=== PATIENT | female | born 1965 | race Caucasian/White ===

== ENCOUNTER 2024-10-22 09:12 | Outpatient (AMB) | payer MEDICAID, SELFPAY ==
[2024-10-22 09:22] VITALS: BP 128/84; PULSE 65; RESP 18; TEMP 35.9; O2SAT 99; BMI 37.2
--- NOTE | 2024-10-22 09:22 | PD.ORTHCLVIS ---
Vital signs 10/22/24 09:22 Height 1.55 m Height Method Stated Weight 89.358 kg Weight Measurement Method Standing Scale BMI 37.2 BP 128/84 Blood Pressure Source Automatic Cuff Blood Pressure Location Left Upper Arm Position Sitting Respiration 18 Pulse 65 Pulse Source Monitor Temp 96.6 F L Temp Source Temporal Artery Scan Pulse Oximetry (%) 99 Oxygen Delivery Method Room Air Med/Allergies Allergies & Medications Allergies No Known Allergies Allergy (Verified 10/22/24 09:24) Medication Reconciliation aspirin 81 mg tablet,delayed release 81 mg PO QDAY 10/22/24 [History Confirmed 10/22/24] atorvastatin 40 mg tablet 40 mg PO QDAY 10/22/24 [History Confirmed 10/22/24] lisinopril 5 mg tablet 5 mg PO QDAY 10/22/24 [History Confirmed 10/22/24] metformin 500 mg tablet 500 mg PO BID 10/22/24 [History Confirmed 10/22/24] semaglutide 1 mg/dose (4 mg/3 mL) subcutaneous pen injector (Ozempic) 1 mg subcut QWEEK 10/22/24 [History Confirmed 10/22/24] Exam Exam Breathing is nonlabored. Patient has a normal mood and affect. Bilateral extremities were evaluated and demonstrates sensation intact to light touch. Palpable pedal pulses are present. No significant edema is present. Bilateral hips were examined. The patient has no pain with log roll of the hips. Internal rotation to 30 degrees and external rotation to 30 degrees is painless. Negative FADIR. Left knee was examined today. The left knee is in reasonable alignment. Range of motion from 0-120 degrees. Knee is stable to varus and valgus as well as AP translation with <5mm. Patient has a negative McMurrays. There is no pain with patellofemoral compression and no crepitus noted. The knee is nontender to palpation. The right knee was also examined. The right knee is in varus alignment. Range of motion from 0-115 degrees. Knee is stable to varus and valgus as well as AP translation with <5mm. Patient has a negative McMurrays. There is no pain with patellofemoral compression and no crepitus noted. The knee is tender to palpation medially. I have no weightbearing x-rays that I can do. I do have the report consistent with severe arthritis medially with complete obliteration Assessment and Plan Problem List (1) Arthritis of knee, right: Status: Acute Plan: This is a 69-year-old female with severe right knee arthritis according to the x-ray report. I would need to get weightbearing x-rays to better evaluate the severity. We can discuss different treatment options depending on what that shows. She is very much interested in surgery and does not want to continue with conservative treatment. I discussed with her that I would need to see her xrays first. Office Procedures GNS Level of Care Nursing/Assessment Patient Status: Initial/New Patient Nursing Assessment/Reassesment: Medication Reconciliation, Update PMH in EMR and Vital Signs Coordination of Care: Complex Care and Chronic Disease 1-5, Education Complex Pt/Fam, Consent,records obtained, informed consent, 1 Ins Authorization, Lab and Imaging orders, Results/Orders obtained and Staff clarify orders New Patient Charge New Patient Point Assignment: 1124 New Patient Point Charge: SENIOR MATERIALS PLANNER Level 4 ([id number]) MA Intake Visit Data Collection New Patient or Established: New Patient (never been to [facility]) Reason for Visit:: RIGHT KNEE MENISCUS TEAR Seen by Clinical Staff ONLY (RN/MA): No Head Of Ethics And Compliance Required: No PCP or OBGYN visit in last 3 months: Yes Hx Now: No Do You Feel Safe at Home: Yes Authorities Contacted: N/A Questionairres Past Medical History Past Medical History Have you ever been diagnosed with any of the following: Cardiology Problems Hypercholesterolemia: Yes Hypertension: Yes Endocrine Problems Diabetes Mellitus Type 1: Yes Hyperthyroidism: Yes Subjective Visit Visit for: new patient and knee (RIGHT) Immunization / Flu Flu Vaccine in the Last 12 Months: No Flu Vaccine Exclusion Criteria: Refused by Patient History of Present Illness Chief complaint: Right knee pain Amaya is a 59-year-old female with severe right knee pain. This been ongoing for years. She has had multiple injections as well as anti-inflammatories and physical therapy. She reports that nothing helps anymore. The pain is affecting Her quality life and happiness Pain Pain level (0-10): 9 Pain duration: CONSTANT Pain location: inside (medial), outside (lateral), anterior and posterior Pain quality: sharp, burning and other (specify) (THROBBING/STABBING) Pain timing: night, increases with activity and stairs Associated signs & symptoms: stiffness Ambulatory data Ambulatory device: none Treatments Number of previous injections: 3 Improvement with previous injections: No Number of Physical Therapy sessions: 4 Improvement with PT: No Improvement with NSAIDS: no Review of Systems Review of Systems: All systems negative unless otherwise noted in HPI.
== END 2024-10-22 09:46 | disposition home or self-care (01) ==
LOC: HODSRG 09:12
PROVIDERS: PCP Nurse Practitioner Primary Care; Referring Provider Nurse Practitioner Primary Care; Supervising Provider Orthopaedic Surgery Adult Reconstructive Orthopaedic Surgery; Visit Provider Orthopaedic Surgery Adult Reconstructive Orthopaedic Surgery
DX: M17.11 Unilateral primary osteoarthritis, right knee (principal); M25.561 Pain in right knee; I10 Essential (primary) hypertension; E78.00 Pure hypercholesterolemia, unspecified
CPT/HCPCS: 99204; G0463

== ENCOUNTER → 2024-10-22 | Outpatient (CLI) | payer MEDICAID, SELFPAY ==
--- NOTE | 2024-10-22 10:20 | XR_ITS ---
Examination: Right knee 4 views TECHNIQUE: AP oblique lateral axial right knee 4 views Exam date and time: October 22, 2024 1135 hours INDICATIONS: Right knee pain beginning 5 years ago FINDINGS: Moderate osteopenia Severe narrowing medial joint space right knee Significant osteoarthritis patellofemoral joint Small knee effusion No patellar dislocation IMPRESSION: Severe narrowing medial joint space right knee Significant osteoarthritis patellofemoral
== END | disposition home or self-care (01) ==
PROVIDERS: Referring Provider Orthopaedic Surgery Adult Reconstructive Orthopaedic Surgery; Visit Provider Orthopaedic Surgery Adult Reconstructive Orthopaedic Surgery
DX: M17.11 Unilateral primary osteoarthritis, right knee (principal); M25.861 Other specified joint disorders, right knee
CPT/HCPCS: 73564

== ENCOUNTER 2024-11-12 10:48 | Outpatient (AMB) | payer BC, SELFPAY ==
[2024-11-12 10:56] VITALS: BP 120/80; PULSE 77; RESP 18; TEMP 36; O2SAT 95; BMI 37.2
--- NOTE | 2024-11-12 10:56 | ORTHONT_ITS ---
Vital signs 11/12/24 10:56 Height 1.55 m Height Method Stated Weight 89.358 kg Weight Measurement Method Standing Scale BMI 37.2 BP 120/80 Blood Pressure Source Automatic Cuff Blood Pressure Location Right Upper Arm Position Sitting Respiration 18 Pulse 77 Pulse Source Monitor Temp 96.8 F Temp Source Temporal Artery Scan Pulse Oximetry (%) 95 Med/Allergies Allergies & Medications Allergies No Known Allergies Allergy (Verified 11/12/24 10:58) Medication Reconciliation aspirin 81 mg tablet,delayed release 81 mg PO QDAY 10/22/24 [History Confirmed 11/12/24] atorvastatin 40 mg tablet 40 mg PO QDAY 10/22/24 [History Confirmed 11/12/24] lisinopril 5 mg tablet 5 mg PO QDAY 10/22/24 [History Confirmed 11/12/24] metformin 500 mg tablet 500 mg PO BID 10/22/24 [History Confirmed 11/12/24] semaglutide 1 mg/dose (4 mg/3 mL) subcutaneous pen injector (Ozempic) 1 mg subcut QWEEK 10/22/24 [History Confirmed 11/12/24] Exam Exam Breathing is nonlabored. Patient has a normal mood and affect. Bilateral extremities were evaluated and demonstrates sensation intact to light touch. Palpable pedal pulses are present. No significant edema is present. Bilateral hips were examined. The patient has no pain with log roll of the hips. Internal rotation to 30 degrees and external rotation to 30 degrees is painless. Negative FADIR. Left knee was examined today. The left knee is in reasonable alignment. Range of motion from 0-120 degrees. Knee is stable to varus and valgus as well as AP translation with <5mm. Patient has a negative McMurrays. There is no pain with patellofemoral compression and no crepitus noted. The knee is nontender to palpation. The right knee was also examined. The right knee is in varus alignment. Range of motion from 0-115 degrees. Knee is stable to varus and valgus as well as AP translation with <5mm. Patient has a negative McMurrays. There is no pain with patellofemoral compression and no crepitus noted. The knee is tender to palpation medially. X-rays demonstrate significant joint space narrowing medially. There is complete obliteration medial joint space with osteophytes present Assessment and Plan Problem List (1) Arthritis of knee, right: Status: Acute Plan: This is a 69-year-old female with severe right knee arthritis. The pain is affecting her quality life and happiness. We discussed total knee replacement is a reasonable option. She has failed conservative treatment clued anti- inflammatories, injections, and physical therapy The nature and purpose of the total knee replacement, alternative method(s) of treatment, the material risks involved, and the possibility of complications were fully explained to the patient. The patient does NOT have any of the following contraindications to TKA: - Active infection of the knee joint, OR - Active systemic bacteremia, OR - Active skin infection or open wound at surgical site, OR - Neuropathic arthritis, OR - Severe, rapidly progressive neurological disease, OR - Severe medical condition that makes risks of surgery outweigh the potential benefit The patient was told the most common risks and complications associated with a total knee replacement include, but are not limited to: blood clots in the leg, fatal pulmonary embolism, dislocation of the prosthesis, intraoperative and postoperative fractures of the femur or tibia, infection, failure of the prosthesis or grafting materials, complications from anesthesia, reactions to blood transfusions, postoperative leg length inequality, instability of the knee replacement, nerve damage or injury, vascular injury, delayed wound healing, infection, other injury or even . In addition, there are risks associated with anesthesia given during this operation. Also, the patient was told that after undergoing a total knee replacement there may still be persistent pain or disability. The patient was informed that the success of this operation in part depends upon the mechanical devices which are going to be implanted and that these devices can fail or malfunction, and may need to be repaired or replaced and there are no guarantees as to the longevity of this device or its parts and that it or its parts could fail prematurely. The patient was also notified that during the course of surgery, there may be a need to use bone graft from donors, and that any bone graft used will be carefully screened for communicable diseases, including AIDS, hepatitis, Jonas-Creutzfeldt, or other diseases, but despite the screening procedures, there is a small chance that they could contract one of these diseases. Finally, the patient was asked to follow completely and fully with all advice and recommended treatments, and that recovery and ultimate outcome are affected by their compliance with recommended treatment. We discussed the risks, benefits and treatment alternatives, and the patient is interested in proceeding with surgery. We will try to set this up as expeditiously as possible. Office Procedures GNS Level of Care Nursing/Assessment Patient Status: Established Patient Nursing Assessment/Reassesment: Medication Reconciliation, Update PMH in EMR and Vital Signs Coordination of Care: Complex Care and Chronic Disease 1-5, Education Complex Pt/Fam, Consent,records obtained, informed consent, Results/Orders obtained and Staff clarify orders Established Patient Charge Established Patient Point Assignment: 95 Established Patient Point Charge: EP Level 3 (80-115) MA Intake Visit Data Collection New Patient or Established: Established Patient (seen at [facility] within 3 years) Reason for Visit:: F/u XRAYS Seen by Clinical Staff ONLY (RN/MA): No Verbal consent obtained for Telemed visit?: No Real Estate Financial Analyst Required: No PCP or OBGYN visit in last 3 months: Yes Hx Now: No Do You Feel Safe at Home: Yes Authorities Contacted: N/A Questionairres Past Medical History Past Medical History Have you ever been diagnosed with any of the following: Cardiology Problems Hypercholesterolemia: Yes Hypertension: Yes Endocrine Problems Diabetes Mellitus Type 1: Yes Hyperthyroidism: Yes Subjective Visit Visit for: follow up visit and x-rays Immunization / Flu Flu Vaccine in the Last 12 Months: No Flu Vaccine Exclusion Criteria: No Exclusion Criteria History of Present Illness Chief complaint: F/u xrays Amaya is a 59-year-old female with severe right knee pain. This been ongoing for years. She has had multiple injections as well as anti-inflammatories and physical therapy. She reports that nothing helps anymore. The pain is affecting Her quality life and happiness Personal History Occupation: Elderly manager medicare Red flag PMH: BMI BMI Counceling provided: Yes Pain Pain level (0-10): 10 Pain duration: all day Pain location: inside (medial), outside (lateral) and anterior Pain quality: sharp, dull, aching and other (specify) (stabbing pain ) Pain timing: night, increases with activity and stairs Associated signs & symptoms: stiffness Ambulatory data Ambulatory device: none Treatments Number of previous injections: 3 Improvement with previous injections: No Number of Physical Therapy sessions: 4 Improvement with PT: No Improvement with NSAIDS: no Review of Systems Review of Systems: All systems negative unless otherwise noted in HPI.
== END 2024-11-12 11:15 | disposition home or self-care (01) ==
LOC: HODSRG 10:48
PROVIDERS: PCP Nurse Practitioner Primary Care; Referring Provider Nurse Practitioner Primary Care; Supervising Provider Orthopaedic Surgery Adult Reconstructive Orthopaedic Surgery; Visit Provider Orthopaedic Surgery Adult Reconstructive Orthopaedic Surgery
DX: M17.11 Unilateral primary osteoarthritis, right knee (principal); I10 Essential (primary) hypertension; E78.00 Pure hypercholesterolemia, unspecified; E10.9 Type 1 diabetes mellitus without complications
CPT/HCPCS: 99213; G0463

== ENCOUNTER 2024-12-09 08:05 | Day surgery (SDC) | payer BC, SELFPAY ==
[2024-12-04 11:03] VITALS: BMI 36.7
[2024-12-04 12:22] LABS: Basophils # (Auto) 0.1 Thou/mm3 (0.0-0.2); Basophils % (Auto) 1 % (0-2.5); Eosinophils # (Auto) 0.4 Thou/mm3 (0.0-0.5); Eosinophils % (Auto) 4 % (0-10); Hematocrit 42.4 % (36.0-46.0); Hemoglobin 14.5 g/dL (12.0-16.0); Immature Granulocytes % (Auto) 1 % (0-0); Immature Granulocytes Auto 0.05 Thou/mm3 (0.00-0.00); Lymphocytes # (Auto) 2.4 Thou/mm3 (1.0-4.8); Lymphocytes % (Auto) 28 % (10-50); Mean Corpuscular HGB Conc 34.2 g/dl (31.0-37.0); Mean Corpuscular Hemoglobin 28.8 pg (25.0-35.0); Mean Corpuscular Volume 84 fL (80-100); Monocytes # (Auto) 0.6 Thou/mm3 (0.0-0.8); Monocytes % (Auto) 7 % (0-12); Neutrophils # (Auto) 5.2 Thou/mm3 (1.8-7.7); Neutrophils % (Auto) 60 % (37-80); Nucleated Red Blood Cell % 0 /100 WBC (0); Platelet Count 251 Thou/mm3 (140-440); RDW Standard Deviation 47.9 fL (36.4-46.3); Red Blood Count 5.04 Miln/mm3 (4.00-5.20); White Blood Count 8.7 Thou/mm3 (3.6-11.0)
[2024-12-04 12:35] LABS: Partial Thromboplastin Time 27.1 Seconds (22.0-36.0); Prothrombin Time 11.2 Seconds (9.0-12.2)
[2024-12-04 12:47] LABS: Alanine Aminotransferase 53 U/L (10-49); Albumin, Serum 4.7 gm/dL (3.5-5.0); Albumin/Globulin Ratio 1.6 (1.2-2.2); Alkaline Phosphatase 71 U/L (46-116); Anion Gap 10 (7-16); Aspartate Amino Transferase 57 U/L (0-34); BUN/Creatinine Ratio 15 Ratio (12-20); Bilirubin,Total 0.8 mg/dL (0.3-1.2); Blood Urea Nitrogen 12 mg/dL (9-23); Calcium 9.8 mg/dL (8.3-10.6); Calcium (Corrected) 9.8 mg/dL (8.5-10.1); Carbon Dioxide 29.2 mMol/L (20.0-31.0); Chloride 103 mMol/L (98-107); Creatinine (Component) 0.8 mg/dL (0.6-1.3); Estimated Creatinine Clearance 79.5 mL/min (>60); Glucose 131 mg/dL (74-106); Osmolality,Calculated 284 (275-295); Sodium 142 mMol/L (136-145); Total Protein 7.7 gm/dL (5.7-8.2); eGFR > 60 See Note
--- NOTE | 2024-12-06 12:36 | SUR.PREOP ---
voice message left for pt to come in at 0830 on Monday for surgery.
[2024-12-09] VITALS (15 sets, daily range): BP systolic 126–154; BP diastolic 57–97; PULSE 62–91; RESP 13–20; TEMP 36.4–36.7; O2SAT 86–98; BMI 36.8; BMI 13.0
[2024-12-09] MEDS: RINGERS LACTATED 1000 ML 1,000 ML 20 ML IV (09:12)
[2024-12-09] MEDS: MELOXICAM 7.5 MG TABLET PO (09:12)
[2024-12-09] MEDS: ACETAMINOPHEN 325 MG TABLET 650 MG PO (09:13)
[2024-12-09] MEDS: PREGABALIN 75 MG CAPSULE PO (09:13)
--- NOTE | 2024-12-09 09:17 | CHAP ---
Patient expressed gratitude for prayer before their procedure.
--- NOTE | 2024-12-09 11:39 | PD.SUROPNT ---
Date of Procedure 12/09/24 Pre Op Diagnosis right knee osteoarthritis Post Op Diagnosis right knee osteoarthritis Procedure right total knee replacement Findings full thickness cartilage loss and osteophytes Procedure Description Indication: The patient is a 59 year old who has a long history of right knee pain. X-rays show degenerative arthritis involving the knee. Over the past several years the patient has had increasing pain, progressive limitation in function. He has failed conservative measures including activity modification, physical therapy, injections, anti-inflammatories, and assistive devices. After a lengthy discussion of the risks and benefits, the patient presents now for total knee replacement. The nature and purpose of the total knee replacement, alternative method(s) of treatment, the material risks involved, and the possibility of complications were fully explained to the patient. The patient was told the most common risks and complications associated with a total knee replacement include, but are not limited to blood clots in the leg, fatal pulmonary embolism, dislocation of the prosthesis, intraoperative and postoperative fractures of the femur or tibia, infection, failure of the prosthesis or grafting materials, complications from anesthesia, reactions to blood transfusions, postoperative leg length inequality, instability of the knee replacement, nerve damage or injury, vascular injury, delayed wound healing, infections, other injury or even . In addition, there are risks associated with anesthesia given during this operation, temporary or permanent numbness on the skin lateral to the incision can be a complication unique to total knee surgery, and kneeling can be painful after knee replacement surgery. Also, the patient was told that after undergoing a total knee replacement there may still be pain or disability. We discussed with the patient that we will be using a robot-assisted technology. We discussed that there is a possibility of converting to manual instrumentation. The patient was informed that the success of this operation in part depends upon the mechanical devices which are going to be implanted and that these devices can fail or malfunction, and may need to be repaired or replaced and there are no guarantees as to the longevity of this device or its part and that it or its parts could fail prematurely. Finally, the patient was asked to follow completely and fully with all advice and recommended treatments, and that recovery and ultimate outcome are affected by their compliance with recommended treatment. Surgical technique: Patient was marked and consented in the pre-operative area. The patient was brought to the operating room and placed on the operating table in a supine position. Prior to positioning, a timeout procedure was performed between the surgeon, the anesthesiologist, and the nursing staff where the patient and the operative side were identified and confirmed. After adequate general anesthetic was obtained, the right lower extremity was prepped and draped in the usual sterile fashion. A weight based dose of Cefazolin were administered within 1 hour prior to incision. The robot was preregistered and calirated before the incision. The extremity was exsanguinated with an esmarch badge and tourniquet inflated to 250mmHg. A midline incision was made. A median parapatellar arthrotomy was made. The patella was subluxed laterally. A medial release was performed to expose the medial tibia. His femoral and tibial pins were placed through an intra incisional manner for both cases. Every effort was made to ensure that the distalmost aspect of the pin was hung in the second cortex. The arrays were then tightened several times to ensure that it was fixed for the remainder of the case. Both femoral and tibial checkpoints were then placed. We then went through the registration process of the bone. We then assessed the knee deformity and attempted to correct it. We also used the robot to aid in judging laxity in both extension and flexion. Final based on laxity and alignment we changed the preoperative assessment to obtain proper proper implant positioning and to correct deformity. Attention was then placed to the tibia. We made a tibial cut using the robot ensuring that both the MCL and the patella tendon were protected with retractors. We then went to the femur and made the posterior cut followed by the anterior cut and the anterior chamfer. The bone was then removed and we made a distal femur cut and a posterior chamfer cut. We verified all cuts. A trial reduction was performed with a size 3 femoral component and a size 3 keeled tibial component. The patella tracked centrally, and no lateral retinacular release was necessary. We trialed PS components and increased components. The trial implants were removed. The arrays, pins, and checkpoints were all removed. We performed a verification that all pins were removed. The cut bone surfaces were lavaged. A size 3 right femoral component, a size 3 keeled tibial component were impacted into position using 2 bags of palacos. A trial insert was placed. The knee was placed in extension until the cement hardened. The knee was felt to be well balanced in the sagittal and coronal plane. The final 3x16 mm posterior-substituting articular insert was impacted into the tibial tray. The knee was brought out to full extension, flexed up to 120 degrees. It was stable to varus and valgus stress and appropriately balanced in flexion and extension. The wounds were copiously irrigated following deflation of tourniquet. The medial retinaculum was reapproximated with #1 vicryl and quill. The subcutaneous tissues were closed with 0 and 2-0 interrupted Vicryl. The skin was closed with 3-0 Monofilament V loc suture. A sterile dressing was applied. The patient was transferred to a bed and brought to recovery in stable condition. The patient tolerated the procedure well. There were no intraoperative complications. Sponge and needle counts were correct times 2. As the attending surgeon, I attest I was present and performed the entire operation. Grafts/Implants Size 3 PS Femur Size 3 Tibia 50 mm stem 16mm poly PS 3 bags of palacos Anesthesia GETA Implants fabio Pathology / specimen None Pathology comment: none Estimated Blood Loss 150 Condition Stable Disposition same day Surgeon Matthew Cotton MD Surgical Staff Operation Date: 12/09/24 13:15 Case Staff HAND TOOL LAPPER: Naveen Zuluaga RNwaterworks pump station operator: Katerin Lo
--- NOTE | 2024-12-09 11:45 | XR_ITS ---
Examination: Right knee 2 views Technique one AP lateral right knee 2 views Exam date and time: December 09, 2024 1119 hrs. Indications: Postop knee replacement today. Findings: Moderate osteopenia Total right knee arthroplasty. Satisfactory alignment No fracture Impression: Total right knee arthroplasty with satisfactory alignment
--- NOTE | 2024-12-09 12:06 | SUR.PHASEI ---
pt arrived to PACU via gurney with LMA present, breathing unlabored, dressing to right lower extremity clean, dry, and intact, report from Jai LOVETT and Edvin BELL.
[2024-12-09] MEDS: ONDANSETRON INJ 2 MG/ML INJ 2 ML 4 MG IV (12:24)
--- NOTE | 2024-12-09 12:28 | SUR.PHASEI ---
1228 Report received from Shari Gutiérrez RN
--- NOTE | 2024-12-09 12:35 | SUR.PHASEI ---
1235 verbal order read-back received from Edvin CAREER TECHNICAL EDUCATION TEACHER for medication Flexeril 10mg oral, will place order in EMR and administer medication to patient per anesthesia order
[2024-12-09] MEDS: CYCLObenzaPRINE 5 MG TABLET 10 MG PO (12:43)
[2024-12-09] MEDS: ACETAMINOPHEN IVPB 1,000 MG/100 ML VIAL 250 MG IV (12:45)
--- NOTE | 2024-12-09 12:45 | SUR.PHASEI ---
1245 Ofirmev 500mg via IV started, per anesthesia provider Edvin EDUCATIONAL TECHNOLOGY SPECIALIST only given the 500mg out of 1gm
--- NOTE | 2024-12-09 13:15 | SUR.PHASEI ---
1315 Patients at bedside with patient
--- NOTE | 2024-12-09 13:32 | SUR.PHASEI ---
2230 Telephone order read-back received from Edvin BELL, for Oxycodone 5mg IR oral with [address] order in EMR and administer per anesthesia order
[2024-12-09] MEDS: oxyCODONE HCL 5 MG IR TAB PO (13:54)
--- NOTE | 2024-12-09 14:47 | SUR.PHASEII ---
patient shared she feels ready to try physical therapy, her pain is tolerable, called PT Jake
--- NOTE | 2024-12-09 15:28 | SUR.PHASEII ---
1528 Patient cleared by Jake LOPEZ to proceed with discharge
--- NOTE | 2024-12-09 16:02 | SUR.PHASEII ---
1602 Patient meets discharge criteria from recovery, awake and alert, breathing unlabored, vital signs stable, per patient her pain is tolerable, dressing intact; no bleeding noted, patient eating crackers and drinking 7up; tolerating well, patient voided in the restroom while walking with PT, patient assisted with dressing into her clothing by this contract writer, discharge instructions given to patient and patients with teach-back approach, both receptive, patient signed discharge instructions. Patient given all her belongings prior to discharge, transported via wheelchair and left in a private vehicle.
== END 2024-12-09 16:02 | disposition home or self-care (01) ==
PROVIDERS: Anesthesiology; PCP Family Medicine; Referring Provider Orthopaedic Surgery Adult Reconstructive Orthopaedic Surgery; Visit Provider Orthopaedic Surgery Adult Reconstructive Orthopaedic Surgery
PROC: (CPT 27447; principal; 2024-12-09 13:00)
DX: M17.11 Unilateral primary osteoarthritis, right knee (principal); M25.761 Osteophyte, right knee
CPT/HCPCS: 27447; 20985; 36415; 73560; 80053; 85025; 85610; 85730; 97162; A4217; C1713; C1776; J0131; J0690; J0694; J1100; J1885; J2250; J2405; J2704; J2795; J3010; J3490; J7030; J7120; J7999; A9270

== ENCOUNTER 2024-12-26 13:49 | Outpatient (AMB) | payer BC, SELFPAY ==
--- NOTE | 2024-12-26 13:57 | PD.ORTHCLVIS ---
Vital signs 12/26/24 14:01 Height 1.57 m Height Method Stated Weight 90.293 kg Weight Measurement Method Standing Scale BMI 36.6 BP 115/76 Blood Pressure Source Automatic Cuff Blood Pressure Location Right Upper Arm Position Sitting Respiration 18 Pulse 90 Pulse Source Monitor Temp 97.6 F Temp Source Temporal Artery Scan Pulse Oximetry (%) 96 Oxygen Delivery Method Room Air Med/Allergies Allergies & Medications Allergies No Known Allergies Allergy (Verified 12/26/24 14:02) Medication Reconciliation aspirin 81 mg tablet,delayed release 81 mg PO QDAY 10/22/24 [History Confirmed 12/26/24] atorvastatin 40 mg tablet 40 mg PO QDAY 10/22/24 [History Confirmed 12/26/24] lisinopril 5 mg tablet 5 mg PO QDAY 10/22/24 [History Confirmed 12/26/24] levothyroxine 150 mcg tablet 150 mcg PO DAILY 12/04/24 [History Confirmed 12/26/24] metformin 1,000 mg tablet 1,000 mg PO BID 12/04/24 [History Confirmed 12/26/24] acetaminophen 500 mg tablet (Acetaminophen Extra Strength) 1,000 mg (2 x 500 mg) PO Q6H PRN pain #90 tabs 12/09/24 [Rx Confirmed 12/26/24] aspirin 81 mg tablet,delayed release 81 mg PO BID #60 tabs 12/09/24 [Rx Confirmed 12/26/24] doxycycline hyclate 100 mg tablet 100 mg PO BID #14 tabs 12/09/24 [Rx Confirmed 12/26/24] gabapentin 300 mg capsule 300 mg PO .qhs #30 caps 12/09/24 [Rx Confirmed 12/26/24] sennosides 8.6 mg-docusate sodium 50 mg tablet (Senna-S) 1 tab-cap PO QDAY #30 tabs 12/09/24 [Rx Confirmed 12/26/24] oxycodone 5 mg tablet 5 mg PO Q6H PRN pain #28 tabs 12/17/24 [Rx Confirmed 12/26/24] oxycodone 5 mg tablet 5 mg PO Q6H PRN pain #28 tabs 12/26/24 [Rx Confirmed 12/26/24] Exam Exam Breathing is nonlabored. Patient has a normal mood and affect. Bilateral extremities were evaluated and demonstrates sensation intact to light touch. Palpable pedal pulses are present. No significant edema is present. Bilateral hips were examined. The patient has no pain with log roll of the hips. Internal rotation to 30 degrees and external rotation to 30 degrees is painless. Negative FADIR. Left knee was examined today. The left knee is in reasonable alignment. Range of motion from 0-120 degrees. Knee is stable to varus and valgus as well as AP translation with <5mm. Patient has a negative McMurrays. There is no pain with patellofemoral compression and no crepitus noted. The knee is nontender to palpation. The right knee was also examined. The right knee is in varus alignment. Range of motion from 0-115 degrees. Knee is stable to varus and valgus as well as AP translation with <5mm. Patient has a negative McMurrays. There is no pain with patellofemoral compression and no crepitus noted. The knee is tender to palpation medially. X-rays demonstrate significant joint space narrowing medially. There is complete obliteration of the medial joint space with osteophytes present Assessment and Plan Problem List (1) Arthritis of knee, right: Status: Acute Plan: Patient is doing well status post total knee replacement. She should start outpatient physical therapy. We will see her in 4 weeks with routine follow-up. She should continue her DVT prophylaxis Office Procedures GNS Level of Care Nursing/Assessment Patient Status: Established Patient Nursing Assessment/Reassesment: Medication Reconciliation, Update PMH in EMR and Vital Signs Coordination of Care: Complex Care and Chronic Disease 1-5, Education Complex Pt/Fam, Consent,records obtained, informed consent, Results/Orders obtained and Staff clarify orders Established Patient Charge Established Patient Point Assignment: 95 Established Patient Point Charge: Level 3 (80-115) MA Intake Visit Data Collection New Patient or Established: Established Patient (seen at [facility] within 3 years) Reason for Visit:: 2 WEEK POST OP LEFT TKA Seen by Clinical Staff ONLY (RN/MA): No PCP or OBGYN visit in last 3 months: Yes Hx Now: No Do You Feel Safe at Home: Yes Authorities Contacted: N/A Questionairres Past Medical History Past Medical History Have you ever been diagnosed with any of the following: Neurological Problems Seizures: No Cardiology Problems Hypercholesterolemia: Yes Congestive Heart Failure: No Hypertension: Yes Varicose Veins: Yes Respiratory Problems Chronic Obstructive Pulmonary Disease (COPD): No Sleep Apnea: Yes Smoking: No Smoking Exposure: No Stomache/Intestinal Problems Obesity: Yes Genital/Urinary Problems Renal Disease: No Reproductive Problems Previous Pregnancies: Yes (3) Musculoskeletal Problems Arthritis: Yes Degenerative Disk Disease: Yes Endocrine Problems Diabetes Mellitus Type 1: Yes Diabetes Mellitus Type 2: Yes Hyperthyroidism: Yes Other Problems Hospitalization: No Shingles: No Blood Transfusions: No Blood Transfusion Reaction: No Anesthesia Reactions: No Radiation Therapy: Yes Chicken Pox: Yes Cancer: Yes (Thyroid) Subjective Visit Visit for: follow up visit, post op #1 and knee Immunization / Flu Flu Vaccine in the Last 12 Months: No Flu Vaccine Exclusion Criteria: No Exclusion Criteria History of Present Illness Chief complaint: Total knee replacement He is 2 weeks status post total knee replacement. She is doing well. She is using a walker. Pain Pain level (0-10): 7 Pain duration: ALL DAY Pain location: inside (medial) and anterior Pain quality: sharp, dull and aching Pain timing: night and increases with activity Associated signs & symptoms: none Ambulatory data Ambulatory device: walker Treatments Improvement with previous injections: No Improvement with PT: No Improvement with NSAIDS: no Review of Systems Review of Systems: All systems negative unless otherwise noted in HPI.
[2024-12-26 14:01] VITALS: BP 115/76; PULSE 90; RESP 18; TEMP 36.4; O2SAT 96; BMI 36.6
== END 2024-12-26 14:08 | disposition home or self-care (01) ==
LOC: HODSRG 13:49
PROVIDERS: PCP Family Medicine; Referring Provider Family Medicine; Supervising Provider Orthopaedic Surgery Adult Reconstructive Orthopaedic Surgery; Visit Provider Orthopaedic Surgery Adult Reconstructive Orthopaedic Surgery
DX: M17.11 Unilateral primary osteoarthritis, right knee (principal); Z96.651 Presence of right artificial knee joint; I10 Essential (primary) hypertension; E78.00 Pure hypercholesterolemia, unspecified; E11.9 Type 2 diabetes mellitus without complications; G47.30 Sleep apnea, unspecified
CPT/HCPCS: 99213; G0463

== ENCOUNTER → 2025-01-14 | Outpatient (CLI) | payer BC, SELFPAY ==
--- NOTE | 2025-01-14 10:52 | XR_ITS ---
Examination: Right knee 4 views TECHNIQUE: AP oblique lateral axial weightbearing right knee 4 views Exam date and time: January 14, 2025 1137 hours INDICATIONS: Right knee stiffness and swelling beginning 2 months ago. FINDINGS: Moderate osteopenia Total right knee arthroplasty. Satisfactory alignment. No fracture. No loosening of the prosthetic components. No patellar dislocation IMPRESSION: Total right knee arthroplasty with satisfactory alignment
== END | disposition home or self-care (01) ==
PROVIDERS: PCP Orthopaedic Surgery Adult Reconstructive Orthopaedic Surgery; Referring Provider Orthopaedic Surgery Adult Reconstructive Orthopaedic Surgery; Visit Provider Orthopaedic Surgery Adult Reconstructive Orthopaedic Surgery
DX: M17.11 Unilateral primary osteoarthritis, right knee (principal); Z96.651 Presence of right artificial knee joint
CPT/HCPCS: 73564

== ENCOUNTER 2025-01-28 09:30 | Outpatient (RCR) | payer BC, SELFPAY ==
--- NOTE | 2024-12-31 15:16 | PT.OIERPT ---
PT OP Initial Eval Patient Information Outpatient Physical Therapy Treatment Date: 12/31/24 Visit Reasons: Right knee post op Medical Diagnosis: M17.11 Treatment Dx #1: Dec ROM R knee Treatment Dx #2: R knee pain Start of Care: 12/31/24 Date of Onset: 12/09/24 Smoking Status Smoking Status: Never smoker Initial Assessment Subjective: Pt is 59 yr old amharic speaking female s/p R TKA presents ambulating with FWW limited distances. Pt reports she is doing exercises with knee pain with bending and using a pillow under the knee at night to sleep. PMH: HTN, DM, thyroidism Pt goal: less pain, more ROM to walk without walker Objective: R knee AROM: ? Flexion: 85 deg ? Extension: -16 deg ? SLR: ? 65 deg with extensor lag ? Strength: ? Quads and hamstrings 3+/5 ? Antalgic gait pattern with decreased WB tolerance on R LE Assessment: Pt presentation consistent with post op R TKA with decreased ROM, strength ? and WB tolerance. Pt lacks knee extension and flexion is limited by ? myofascial limitations and pain.? Pt requires skilled therapy to improve ROM ? and strength and has good rehab potential.? Eval followed by HEP with printout. Short Term and Nursing Home Goals 1. Independent with HEP 2. Improved knee ROM to full extension to 115 deg flexion 3. Improved quad and hamstring strength to 4+/5 4. Improved ambulatory tolerance to community distances with symmetrical gait pattern without assistive device Treatment Plan ? 1. Manual therapy ? 2. Therex ? 3. Modalities as indicated, moist heat, ice, estim Frequency and Duration: 2x a week for 8 weeks Certification Dates: 12/31/24 to 04/01/25 Procedure Charges OP PT Eval Mod Complex 30 minutes: Yes
--- NOTE | 2025-01-02 10:42 | PT.ODAYNRPT ---
PT Outpatient Daily Note OP Daily Note Outpatient Physical Therapy Treatment Date: 01/02/25 Visit Reasons: Right knee post op Subjective: Pt reports being compliant with HEP. Objective: Please see flow sheet for ther ex list. Assessment: Pt guarded during AAROM interventions, pt educated about the importance of early mobility to reduce scar tissue adhesion. Plan: Continue with POC. Length of Time (minutes) of Treatment: 30 Minutes Procedure Charges Therapeutic Exercise 30 minutes: Yes
--- NOTE | 2025-01-07 10:07 | PT.ODAYNRPT ---
PT Outpatient Daily Note OP Daily Note Outpatient Physical Therapy Treatment Date: 01/07/25 Visit Reasons: Right knee post op Subjective: Pt reports R knee is doing ok, still stiff and painful. as per pt she is using the weights for her knee extension HEP. Objective: Please see flow sheet for ther ex list. Assessment: Pt guarded with his R knee during manual and AAROM stretches. Plan: Continue with POC. Length of Time (minutes) of Treatment: 30 Minutes Procedure Charges Therapeutic Exercise 30 minutes: Yes
--- NOTE | 2025-01-09 12:10 | PT.ODAYNRPT ---
PT Outpatient Daily Note OP Daily Note Outpatient Physical Therapy Treatment Date: 01/09/25 Visit Reasons: Right knee post op Subjective: Doing HEP with pain to straighten and bend the knee Objective: See F/S for therex MT: PROM into flexion x5' to first resistance Assessment: Pt lacks extension and flexion ROM fo R knee and high pain at first resistance into flexion with MT. Plan: Improve R knee ROM Length of Time (minutes) of Treatment: 30 Minutes Procedure Charges Therapeutic Exercise 30 minutes: Yes
--- NOTE | 2025-01-14 10:16 | PT.ODAYNRPT ---
PT Outpatient Daily Note OP Daily Note Outpatient Physical Therapy Treatment Date: 01/14/25 Visit Reasons: Right knee post op Subjective: Pt reports knee is doing better, uses cane at home for short distance walking. Pt notices if she sits for prolonged periods when she gets up initially knee is stiff and feels unsteady. Objective: Please see flow sheet for ther ex list. Assessment: Pt encouraged to continue using FWW for balance when ambulating and not WB on FWw to work towards improving gait. Pt encouraged to bring SPC next session, will continue working toward normalizing gait and recovering ROM. Plan: Continue with pOC. Length of Time (minutes) of Treatment: 30 Minutes Procedure Charges Therapeutic Exercise 30 minutes: Yes
--- NOTE | 2025-01-16 10:17 | PT.ODAYNRPT ---
PT Outpatient Daily Note OP Daily Note Outpatient Physical Therapy Treatment Date: 01/16/25 Visit Reasons: Right knee post op Subjective: Pt reports she has been using cane, feels good not LOB but knee feels stiff. Objective: Please see flow sheet for ther ex list. Assessment: Pt ambulating with SPC, no LOB no knee buckling present. Plan: Continue with poC. Length of Time (minutes) of Treatment: 30 Minutes Procedure Charges Therapeutic Exercise 30 minutes: Yes
--- NOTE | 2025-01-21 10:05 | PT.ODAYNRPT ---
PT Outpatient Daily Note OP Daily Note Outpatient Physical Therapy Treatment Date: 01/21/25 Visit Reasons: Right knee post op Subjective: Pt reports she is doing all she can at home to work towards improving knee mobility. Objective: Please see flow sheet for ther ex list. Assessment: Pt ambulating with SPC, demonstrates improve stride but poor heel strike due to knee extension lag. Pt encouraged to continue performing HEp. Plan: Continue with pOC. Length of Time (minutes) of Treatment: 30 Minutes Procedure Charges Therapeutic Exercise 30 minutes: Yes
--- NOTE | 2025-01-23 10:16 | PT.ODAYNRPT ---
PT Outpatient Daily Note OP Daily Note Outpatient Physical Therapy Treatment Date: 01/23/25 Visit Reasons: Right knee post op Subjective: Pt reports R knee is doing ok, frustrated that flexibility is slow to progress. Pt does HEP and feels better after but once she sits for ~15 minutes the knee gets really stiff again. Objective: Please see flow sheet for ther ex list Assessment: Pt instructed on step up exercise to simulate stepping over curbs in community and to manage step and stairs, pt completed with [employer]. Plan: Continue with poC. Length of Time (minutes) of Treatment: 30 Minutes Procedure Charges Therapeutic Exercise 30 minutes: Yes
--- NOTE | 2025-01-28 13:07 | PT.ODAYNRPT ---
PT Outpatient Daily Note OP Daily Note Outpatient Physical Therapy Treatment Date: 01/28/25 Visit Reasons: Right knee post op Subjective: Doing HEP with pain to straighten and bend the knee, not taking anything for pain. Objective: See F/S for therex TENS R knee with MHP x7' Assessment: Pt lacks extension and flexion ROM of R knee and high pain at first resistance into flexion with MT. Plan: Improve R knee ROM Length of Time (minutes) of Treatment: 30 Minutes Procedure Charges Therapeutic Exercise 30 minutes: Yes
== END 2025-01-29 23:59 | disposition home or self-care (01) ==
LOC: CPTX 09:30
PROVIDERS: PCP Orthopaedic Surgery Adult Reconstructive Orthopaedic Surgery; Referring Provider Orthopaedic Surgery Adult Reconstructive Orthopaedic Surgery; Visit Provider Orthopaedic Surgery Adult Reconstructive Orthopaedic Surgery
DX: M25.561 Pain in right knee (principal); Z96.651 Presence of right artificial knee joint; M17.11 Unilateral primary osteoarthritis, right knee; I10 Essential (primary) hypertension; E11.9 Type 2 diabetes mellitus without complications
CPT/HCPCS: 97110; 97162

== ENCOUNTER 2025-01-30 10:19 | Outpatient (AMB) | payer BC, SELFPAY ==
[2025-01-30 11:06] VITALS: BP 133/82; PULSE 87; RESP 18; TEMP 36.5; O2SAT 96; BMI 37.2
--- NOTE | 2025-01-30 11:06 | ORTHONT_ITS ---
Vital signs 01/30/25 11:06 Height 1.57 m Height Method Stated Weight 91.711 kg Weight Measurement Method Standing Scale BMI 37.2 BP 133/82 H Blood Pressure Source Automatic Cuff Blood Pressure Location Right Upper Arm Position Sitting Respiration 18 Pulse 87 Pulse Source Monitor Temp 97.7 F Temp Source Temporal Artery Scan Pulse Oximetry (%) 96 Oxygen Delivery Method Room Air Med/Allergies Allergies & Medications Allergies No Known Allergies Allergy (Verified 01/30/25 11:07) Medication Reconciliation aspirin 81 mg tablet,delayed release 81 mg PO QDAY 10/22/24 [History Confirmed 01/30/25] atorvastatin 40 mg tablet 40 mg PO QDAY 10/22/24 [History Confirmed 01/30/25] lisinopril 5 mg tablet 5 mg PO QDAY 10/22/24 [History Confirmed 01/30/25] levothyroxine 150 mcg tablet 150 mcg PO DAILY 12/04/24 [History Confirmed 01/30/25] metformin 1,000 mg tablet 1,000 mg PO BID 12/04/24 [History Confirmed 01/30/25] acetaminophen 500 mg tablet (Acetaminophen Extra Strength) 1,000 mg (2 x 500 mg) PO Q6H PRN pain #90 tabs 12/09/24 [Rx Confirmed 01/30/25] aspirin 81 mg tablet,delayed release 81 mg PO BID #60 tabs 12/09/24 [Rx Confirmed 01/30/25] doxycycline hyclate 100 mg tablet 100 mg PO BID #14 tabs 12/09/24 [Rx Confirmed 01/30/25] gabapentin 300 mg capsule 300 mg PO .qhs #30 caps 12/09/24 [Rx Confirmed 01/30/25] sennosides 8.6 mg-docusate sodium 50 mg tablet (Senna-S) 1 tab-cap PO QDAY #30 tabs 12/09/24 [Rx Confirmed 01/30/25] oxycodone 5 mg tablet 5 mg PO Q6H PRN pain #28 tabs 12/17/24 [Rx Confirmed 01/30/25] oxycodone 5 mg tablet 5 mg PO Q6H PRN pain #28 tabs 12/26/24 [Rx Confirmed 01/30/25] hydrocodone 7.5 mg-acetaminophen 325 mg tablet 1 tab PO Q6H PRN pain #28 tabs 12/27/24 [Rx Confirmed 01/30/25] naproxen 500 mg tablet 500 mg PO BID PRN pain #60 tabs 01/30/25 [Rx] Exam Exam Breathing is nonlabored. Patient has a normal mood and affect. Bilateral extremities were evaluated and demonstrates sensation intact to light touch. Palpable pedal pulses are present. No significant edema is present. Bilateral hips were examined. The patient has no pain with log roll of the hips. Internal rotation to 30 degrees and external rotation to 30 degrees is painless. Negative FADIR. Left knee was examined today. The left knee is in reasonable alignment. Range of motion from 0-120 degrees. Knee is stable to varus and valgus as well as AP translation with <5mm. Patient has a negative McMurrays. There is no pain with patellofemoral compression and no crepitus noted. The knee is nontender to palpation. Right knee incisions clean dry intact. Range of motion is 0 to 105 degrees Assessment and Plan Problem List (1) Arthritis of knee, right: Status: Acute Plan: Patient is doing well status post total knee replacement. She is doing well and should continue with outpatient physical therapy. We will see her for routine follow-up in approximately 6 to 8 weeks. Her last x-rays. Office Procedures GNS Level of Care Nursing/Assessment Patient Status: Established Patient Nursing Assessment/Reassesment: Medication Reconciliation, Update PMH in EMR and Vital Signs Coordination of Care: Complex Care and Chronic Disease 1-5, Education Complex Pt/Fam, Consent,records obtained, informed consent, Lab and Imaging orders, Results/Orders obtained and Staff clarify orders Established Patient Charge Established Patient Point Assignment: 110 Established Patient Point Charge: EP Level 3 (80-115) MA Intake Visit Data Collection New Patient or Established: Established Patient (seen at [facility] within 3 years) Reason for Visit:: RIGHT KNEE SURGERY Seen by Clinical Staff ONLY (RN/MA): No Verbal consent obtained for Telemed visit?: No [employer] Required: No PCP or OBGYN visit in last 3 months: Yes Hx Now: No Do You Feel Safe at Home: Yes Authorities Contacted: N/A Questionairres Past Medical History Past Medical History Have you ever been diagnosed with any of the following: Neurological Problems Seizures: No Cardiology Problems Hypercholesterolemia: Yes Congestive Heart Failure: No Hypertension: Yes Varicose Veins: Yes Respiratory Problems Chronic Obstructive Pulmonary Disease (COPD): No Sleep Apnea: Yes Smoking: No Smoking Exposure: No Stomache/Intestinal Problems Obesity: Yes Genital/Urinary Problems Renal Disease: No Reproductive Problems Previous Pregnancies: Yes (3) Musculoskeletal Problems Arthritis: Yes Degenerative Disk Disease: Yes Endocrine Problems Diabetes Mellitus Type 1: Yes Diabetes Mellitus Type 2: Yes Hyperthyroidism: Yes Other Problems Hospitalization: No Shingles: No Blood Transfusions: No Blood Transfusion Reaction: No Anesthesia Reactions: No Radiation Therapy: Yes Chicken Pox: Yes Cancer: Yes (Thyroid) Subjective Visit Visit for: follow up visit and knee Immunization / Flu Flu Vaccine in the Last 12 Months: No Flu Vaccine Exclusion Criteria: No Exclusion Criteria History of Present Illness Chief complaint: RIGHT KNEE FOLLOW UP Patient is 6 weeks status post total knee replacement. She is doing well. She is using a cane at this time. She reports the pain is better than before surgery Personal History Occupation: DISABLED Red flag PMH: BMI BMI Counceling provided: Yes Pain Pain level (0-10): 8 Pain duration: COMES AND GOES Pain location: inside (medial), outside (lateral), anterior and posterior Pain quality: sharp, dull and aching Pain timing: increases with activity Associated signs & symptoms: none Ambulatory data Ambulatory device: cane Treatments Improvement with previous injections: No Improvement with PT: No Improvement with NSAIDS: yes Review of Systems Review of Systems: All systems negative unless otherwise noted in HPI.
== END 2025-01-30 11:24 | disposition home or self-care (01) ==
LOC: HODSRG 10:19
PROVIDERS: PCP Family Medicine; Referring Provider Family Medicine; Supervising Provider Orthopaedic Surgery Adult Reconstructive Orthopaedic Surgery; Visit Provider Orthopaedic Surgery Adult Reconstructive Orthopaedic Surgery
DX: M17.11 Unilateral primary osteoarthritis, right knee (principal); Z96.651 Presence of right artificial knee joint; I10 Essential (primary) hypertension; E78.00 Pure hypercholesterolemia, unspecified; G47.30 Sleep apnea, unspecified
CPT/HCPCS: 99213; G0463

== ENCOUNTER 2025-02-27 09:30 | Outpatient (RCR) | payer BC, SELFPAY ==
--- NOTE | 2025-01-30 10:29 | PT.ODS1RPT ---
PT OP Progress/Discharge Note Date of Service: 01/30/25 Progress Note/DC Note Progress Note/Discharge Note: Progress Note Patient Information Visit Reasons: RIGHT KNEE SURGERY Service Continue Service or Discharge: Continue Service Status Subjective: Continued high pain in R knee at night and with bending the knee. Ambulating with FWW. Objective: R knee AROM: Extension: -22 deg Flexion: 90 deg Gait: antalgic with flexed knee Manual therapy: PROM into extension with overpressure to end-range x7' Assessment: Pt has attended the eval and 9 Rx sessions wtih slow progress with goals due to high tissue irritability. Pt has limited extension and flexion ROM with ligamentous end-feels. Pt would benefit from continued therapy to improve ROM and WB tolerance on R. Plan: Continue per POC until 16 visits then reassess Procedure Charges Therapeutic Exercise 30 minutes: Yes
--- NOTE | 2025-02-04 08:37 | PT.ODAYNRPT ---
PT Outpatient Daily Note OP Daily Note Outpatient Physical Therapy Treatment Date: 02/04/25 Visit Reasons: RIGHT KNEE SURGERY Subjective: Doing HEP with pain to straighten and bend the knee, not taking anything for pain. Objective: See F/S for therex [facility] x7' Assessment: Pt lacks extension and flexion ROM of R knee and high pain at first resistance into flexion with MT. Plan: Improve R knee ROM Length of Time (minutes) of Treatment: 30 Minutes Procedure Charges Therapeutic Exercise 30 minutes: Yes
--- NOTE | 2025-02-11 11:48 | PT.ODAYNRPT ---
PT Outpatient Daily Note OP Daily Note Outpatient Physical Therapy Treatment Date: 02/11/25 Visit Reasons: RIGHT KNEE SURGERY Subjective: She says she slept better after not doing her HEP, maybe I'm over doing it. Objective: See F/S for therex Assessment: Knee flexion ROM is limited to about 90 deg and extension about -12 deg Plan: Improve ROM Length of Time (minutes) of Treatment: 30 Minutes Procedure Charges Therapeutic Exercise 30 minutes: Yes
--- NOTE | 2025-02-13 09:57 | PTNOTE_ITS ---
PT Outpatient Daily Note OP Daily Note Outpatient Physical Therapy Treatment Date: 02/13/25 Visit Reasons: RIGHT KNEE SURGERY Subjective: Pt notices she is walking better but still has pain and stiffness with initial standing. Objective: Please see flow sheet for ther ex list. Assessment: Pt continues to ambulate with antalgic gait, pt does not have full knee ext ension resulting in poor heel strike. Plan: Continue with poC. Procedure Charges Therapeutic Exercise 30 minutes: Yes
--- NOTE | 2025-02-18 12:03 | PT.ODAYNRPT ---
PT Outpatient Daily Note OP Daily Note Outpatient Physical Therapy Treatment Date: 02/18/25 Visit Reasons: RIGHT KNEE SURGERY Subjective: Doing HEP with pain into end-range flexion and extension Objective: See F/S for therex MT: PROM into extension x5' with overpressure to tolerance Assessment: Improved PROM into extension to about -10 deg today Plan: Improve ROM of R knee Length of Time (minutes) of Treatment: 30 Minutes Procedure Charges Therapeutic Exercise 30 minutes: Yes
--- NOTE | 2025-02-25 10:27 | PT.ODAYNRPT ---
PT Outpatient Daily Note OP Daily Note Outpatient Physical Therapy Treatment Date: 02/25/25 Visit Reasons: RIGHT KNEE SURGERY Subjective: Pt reports progress with R knee, mentioned that she has not used her cane for a couple of days now. Pt shared that she went to shopping to [facility] and was the first time she did not use electric shopping cart. Pt was sore after her shopping trip but content she was able to do it. Objective: Please see flow sheet for ther ex list. Assessment: Pt ROM of R knee continues to improve. Plan: Continue with pOC. Length of Time (minutes) of Treatment: 30 Minutes Procedure Charges Therapeutic Exercise 30 minutes: Yes
--- NOTE | 2025-02-27 10:05 | PT.ODAYNRPT ---
PT Outpatient Daily Note OP Daily Note Outpatient Physical Therapy Treatment Date: 02/27/25 Visit Reasons: RIGHT KNEE SURGERY Subjective: Pt reports her R knee has been hurting a lot more these last few days. Pt shared that she follows up with surgeon in a few weeks, is not sure if they will release her for work but mentioned she does not think she can return to work because of how her knee feels. Pt thinks her trip to [facility] over the weekend might be why her knee flared up on her. Objective: Please see flow sheet for ther ex list. Assessment: Pt limping today, demonstrates antalgic gait, poor heel strike and poor knee extension during gait. Plan: Continue with pOC. Assess response to treament. Length of Time (minutes) of Treatment: 30 Minutes Procedure Charges Therapeutic Exercise 30 minutes: Yes
== END 2025-03-01 23:59 | disposition home or self-care (01) ==
LOC: CPTX 09:30
PROVIDERS: PCP Orthopaedic Surgery Adult Reconstructive Orthopaedic Surgery; Referring Provider Orthopaedic Surgery Adult Reconstructive Orthopaedic Surgery; Visit Provider Orthopaedic Surgery Adult Reconstructive Orthopaedic Surgery
DX: M25.561 Pain in right knee (principal); Z96.651 Presence of right artificial knee joint; M17.11 Unilateral primary osteoarthritis, right knee; I10 Essential (primary) hypertension; E11.9 Type 2 diabetes mellitus without complications
CPT/HCPCS: 97110

== ENCOUNTER 2025-03-13 09:12 | Outpatient (AMB) | payer BC, SELFPAY ==
--- NOTE | 2025-03-13 09:27 | PD.ORTHCLVIS ---
Vital signs 03/13/25 09:28 Height 1.57 m Height Method Stated Weight 90.718 kg Weight Measurement Method Standing Scale BMI 36.8 BP 126/82 Blood Pressure Source Automatic Cuff Blood Pressure Location Left Upper Arm Position Sitting Respiration 18 Pulse 86 Pulse Source Monitor Temp 97.6 F Temp Source Temporal Artery Scan Pulse Oximetry (%) 96 Oxygen Delivery Method Room Air Med/Allergies Allergies & Medications Allergies No Known Allergies Allergy (Verified 03/13/25 09:28) Medication Reconciliation aspirin 81 mg tablet,delayed release 81 mg PO QDAY 10/22/24 [History Confirmed 03/13/25] atorvastatin 40 mg tablet 40 mg PO QDAY 10/22/24 [History Confirmed 03/13/25] lisinopril 5 mg tablet 5 mg PO QDAY 10/22/24 [History Confirmed 03/13/25] levothyroxine 150 mcg tablet 150 mcg PO DAILY 12/04/24 [History Confirmed 03/13/25] metformin 1,000 mg tablet 1,000 mg PO BID 12/04/24 [History Confirmed 03/13/25] acetaminophen 500 mg tablet (Acetaminophen Extra Strength) 1,000 mg (2 x 500 mg) PO Q6H PRN pain #90 tabs 12/09/24 [Rx Confirmed 03/13/25] aspirin 81 mg tablet,delayed release 81 mg PO BID #60 tabs 12/09/24 [Rx Confirmed 03/13/25] doxycycline hyclate 100 mg tablet 100 mg PO BID #14 tabs 12/09/24 [Rx Confirmed 03/13/25] gabapentin 300 mg capsule 300 mg PO .qhs #30 caps 12/09/24 [Rx Confirmed 03/13/25] sennosides 8.6 mg-docusate sodium 50 mg tablet (Senna-S) 1 tab-cap PO QDAY #30 tabs 12/09/24 [Rx Confirmed 03/13/25] oxycodone 5 mg tablet 5 mg PO Q6H PRN pain #28 tabs 12/17/24 [Rx Confirmed 03/13/25] oxycodone 5 mg tablet 5 mg PO Q6H PRN pain #28 tabs 12/26/24 [Rx Confirmed 03/13/25] hydrocodone 7.5 mg-acetaminophen 325 mg tablet 1 tab PO Q6H PRN pain #28 tabs 12/27/24 [Rx Confirmed 03/13/25] naproxen 500 mg tablet 500 mg PO BID PRN pain #60 tabs 01/30/25 [Rx Confirmed 03/13/25] Exam Exam Breathing is nonlabored. Patient has a normal mood and affect. Bilateral extremities were evaluated and demonstrates sensation intact to light touch. Palpable pedal pulses are present. No significant edema is present. Bilateral hips were examined. The patient has no pain with log roll of the hips. Internal rotation to 30 degrees and external rotation to 30 degrees is painless. Negative FADIR. Left knee was examined today. The left knee is in reasonable alignment. Range of motion from 0-120 degrees. Knee is stable to varus and valgus as well as AP translation with <5mm. Patient has a negative McMurrays. There is no pain with patellofemoral compression and no crepitus noted. The knee is nontender to palpation. Right knee incisions clean dry intact. Range of motion is 0 to 105 degrees Assessment and Plan Problem List (1) Arthritis of knee, right: Status: Acute Plan: Patient is doing well status post total knee replacement. She is doing well and should continue with outpatient physical therapy. She is doing well and we will see her in 3 months. We will release her to full duty when we see her again likely. There is no lighy duty accomodation at work right now. Office Procedures GNS Level of Care Nursing/Assessment Patient Status: Established Patient Nursing Assessment/Reassesment: Medication Reconciliation, Update PMH in EMR and Vital Signs Coordination of Care: Complex Care and Chronic Disease 1-5, Education Complex Pt/Fam, Consent,records obtained, informed consent, Results/Orders obtained and Staff clarify orders Established Patient Charge Established Patient Point Assignment: 95 Established Patient Point Charge: EP Level 3 (80-115) MA Intake Visit Data Collection New Patient or Established: Established Patient (seen at [facility] within 3 years) Reason for Visit:: 3 MTH TKA F/U Seen by Clinical Staff ONLY (RN/MA): No PCP or OBGYN visit in last 3 months: Yes Hx Now: No Do You Feel Safe at Home: Yes Authorities Contacted: N/A Questionairres Past Medical History Past Medical History Have you ever been diagnosed with any of the following: Neurological Problems Seizures: No Cardiology Problems Hypercholesterolemia: Yes Congestive Heart Failure: No Hypertension: Yes Varicose Veins: Yes Respiratory Problems Chronic Obstructive Pulmonary Disease (COPD): No Sleep Apnea: Yes Smoking: No Smoking Exposure: No Stomache/Intestinal Problems Obesity: Yes Genital/Urinary Problems Renal Disease: No Reproductive Problems Previous Pregnancies: Yes (3) Musculoskeletal Problems Arthritis: Yes Degenerative Disk Disease: Yes Endocrine Problems Diabetes Mellitus Type 1: Yes Diabetes Mellitus Type 2: Yes Hyperthyroidism: Yes Other Problems Hospitalization: No Shingles: No Blood Transfusions: No Blood Transfusion Reaction: No Anesthesia Reactions: No Radiation Therapy: Yes Chicken Pox: Yes Cancer: Yes (Thyroid) Subjective Visit Visit for: follow up visit and knee Immunization / Flu Flu Vaccine in the Last 12 Months: No Flu Vaccine Exclusion Criteria: No Exclusion Criteria History of Present Illness Chief complaint: RIGHT KNEE FOLLOW UP Patient is 6 weeks status post total knee replacement. She is doing well. She is using a cane at this time. She reports the pain is better than before surgery Personal History Occupation: DISABLED Red flag PMH: BMI BMI Counceling provided: Yes Pain Pain level (0-10): 5 Pain duration: ON AND OFF Pain location: anterior Pain quality: aching Pain timing: increases with activity Associated signs & symptoms: none Ambulatory data Ambulatory device: cane Treatments Improvement with previous injections: No Improvement with PT: Yes Improvement with NSAIDS: no Review of Systems Review of Systems: All systems negative unless otherwise noted in HPI.
[2025-03-13 09:28] VITALS: BP 126/82; PULSE 86; RESP 18; TEMP 36.4; O2SAT 96; BMI 36.8
== END 2025-03-13 09:35 | disposition home or self-care (01) ==
LOC: HODSRG 09:12
PROVIDERS: Supervising Provider Orthopaedic Surgery Adult Reconstructive Orthopaedic Surgery; Visit Provider Orthopaedic Surgery Adult Reconstructive Orthopaedic Surgery
DX: M17.11 Unilateral primary osteoarthritis, right knee (principal); Z96.651 Presence of right artificial knee joint; I10 Essential (primary) hypertension; E78.00 Pure hypercholesterolemia, unspecified; E11.9 Type 2 diabetes mellitus without complications
CPT/HCPCS: 99213; G0463

== ENCOUNTER 2025-03-25 08:30 | Outpatient (RCR) | payer BC, SELFPAY ==
--- NOTE | 2025-03-04 18:29 | PT.ODS1RPT ---
PT OP Progress/Discharge Note Date of Service: 03/04/25 Progress Note/DC Note Progress Note/Discharge Note: Progress Note Patient Information Visit Reasons: right knee surgery Service Continue Service or Discharge: Continue Service Status Subjective: Continued mod/high pain in R knee at night and with bending the knee. Doing HEP twice daily. Ambulating without assistive device. Objective: R knee AROM: PROM: Extension: -15 deg -10 deg Flexion: 90 deg 98 deg Strength: Quads: 4-/5 HS: 4-/5 Gait: mildly antalgic with flexed knee Assessment: Pt has attended the eval and Rx sessions with slow progress with goals due to high tissue irritability and scar tissue adhesions. There has been improvement with ROM since last progress note but she still has limited extension and flexion ROM with ligamentous end-feels and has not met ROM goals of full extension and 115 deg flexion. Pt would benefit from continued therapy to improve ROM and WB tolerance on R and possibly DARIUSZ. Plan: Request additional visits to extend POC by 8 more to a total of 24 visits and cert dates from 04/01 to 05/02/25. We will need provider's signature on this progress note to extend. Procedure Charges Therapeutic Exercise 30 minutes: Yes
--- NOTE | 2025-03-13 09:05 | PT.ODAYNRPT ---
PT Outpatient Daily Note OP Daily Note Outpatient Physical Therapy Treatment Date: 03/13/25 Visit Reasons: right knee surgery Subjective: Pt reports knee is doing ok, has been working on her HEP. Pt has follow up with surgeon today. Objective: Please see flow sheet for ther ex list. Assessment: Pt demonstrates extension lag during heel strike. Minimal guarding during LLPS into knee extension. Plan: Continue with POC. Length of Time (minutes) of Treatment: 30 Minutes Procedure Charges Therapeutic Exercise 30 minutes: Yes
--- NOTE | 2025-03-19 08:34 | PT.ODAYNRPT ---
PT Outpatient Daily Note OP Daily Note Outpatient Physical Therapy Treatment Date: 03/19/25 Visit Reasons: right knee surgery Subjective: Pt reports she had a follow up with surgeon who cleared her to return to work on modified duty. As per pt her job can not accommodate her for modified duty. pt also mentioned that surgeon said she will not be needing a manipulation. Objective: Please see flow sheet for ther ex list. Assessment: Pt instructed on sitting knee flexion stretch, pt tolerate well. Plan: Continue with poC. Length of Time (minutes) of Treatment: 30 Minutes Procedure Charges Therapeutic Exercise 30 minutes: Yes
--- NOTE | 2025-03-25 09:26 | PT.ODAYNRPT ---
PT Outpatient Daily Note OP Daily Note Outpatient Physical Therapy Treatment Date: 03/25/25 Visit Reasons: right knee surgery Subjective: Doing HEP of aggressive ROM but the knee doesn't extend Objective: See f/S for therex PROM into extension x3' Assessment: High gastroc tone may be limiting knee extension ROM. She has been doing the gastroc stretches incorrectly and was corrected today and encouraged to do as part of HEP. Plan: Continue per POC Length of Time (minutes) of Treatment: 30 Minutes Procedure Charges Therapeutic Exercise 30 minutes: Yes
== END 2025-03-31 23:59 | disposition home or self-care (01) ==
LOC: CPTX 08:30
PROVIDERS: PCP Orthopaedic Surgery Adult Reconstructive Orthopaedic Surgery; Referring Provider Orthopaedic Surgery Adult Reconstructive Orthopaedic Surgery; Visit Provider Orthopaedic Surgery Adult Reconstructive Orthopaedic Surgery
DX: M25.561 Pain in right knee (principal); Z96.651 Presence of right artificial knee joint; M17.11 Unilateral primary osteoarthritis, right knee; I10 Essential (primary) hypertension; E11.9 Type 2 diabetes mellitus without complications
CPT/HCPCS: 97110

== ENCOUNTER 2025-04-24 09:54 | Outpatient (AMB) | payer BC, SELFPAY ==
[2025-04-24 10:16] VITALS: BP 150/88; PULSE 82; RESP 19; TEMP 36.4; O2SAT 98; BMI 38.1
--- NOTE | 2025-04-24 10:16 | PD.ORTHCLVIS ---
Vital signs 04/24/25 10:16 Height 1.57 m Height Method Stated Weight 94.092 kg Weight Measurement Method Standing Scale BMI 38.1 BP 150/88 H Blood Pressure Source Automatic Cuff Blood Pressure Location Left Upper Arm Position Sitting Respiration 19 Pulse 82 Pulse Source Monitor Temp 97.5 F Temp Source Temporal Artery Scan Pulse Oximetry (%) 98 Oxygen Delivery Method Room Air Med/Allergies Allergies & Medications Allergies No Known Allergies Allergy (Verified 04/24/25 10:17) Medication Reconciliation aspirin 81 mg tablet,delayed release 81 mg PO QDAY 10/22/24 [History Confirmed 03/13/25] atorvastatin 40 mg tablet 40 mg PO QDAY 10/22/24 [History Confirmed 03/13/25] lisinopril 5 mg tablet 5 mg PO QDAY 10/22/24 [History Confirmed 03/13/25] levothyroxine 150 mcg tablet 150 mcg PO DAILY 12/04/24 [History Confirmed 03/13/25] metformin 1,000 mg tablet 1,000 mg PO BID 12/04/24 [History Confirmed 03/13/25] acetaminophen 500 mg tablet (Acetaminophen Extra Strength) 1,000 mg (2 x 500 mg) PO Q6H PRN pain #90 tabs 12/09/24 [Rx Confirmed 03/13/25] aspirin 81 mg tablet,delayed release 81 mg PO BID #60 tabs 12/09/24 [Rx Confirmed 03/13/25] doxycycline hyclate 100 mg tablet 100 mg PO BID #14 tabs 12/09/24 [Rx Confirmed 03/13/25] gabapentin 300 mg capsule 300 mg PO .qhs #30 caps 12/09/24 [Rx Confirmed 03/13/25] sennosides 8.6 mg-docusate sodium 50 mg tablet (Senna-S) 1 tab-cap PO QDAY #30 tabs 12/09/24 [Rx Confirmed 03/13/25] oxycodone 5 mg tablet 5 mg PO Q6H PRN pain #28 tabs 12/17/24 [Rx Confirmed 03/13/25] oxycodone 5 mg tablet 5 mg PO Q6H PRN pain #28 tabs 12/26/24 [Rx Confirmed 03/13/25] hydrocodone 7.5 mg-acetaminophen 325 mg tablet 1 tab PO Q6H PRN pain #28 tabs 12/27/24 [Rx Confirmed 03/13/25] naproxen 500 mg tablet 500 mg PO BID PRN pain #60 tabs 01/30/25 [Rx Confirmed 03/13/25] Exam Exam Breathing is nonlabored. Patient has a normal mood and affect. Bilateral extremities were evaluated and demonstrates sensation intact to light touch. Palpable pedal pulses are present. No significant edema is present. Bilateral hips were examined. The patient has no pain with log roll of the hips. Internal rotation to 30 degrees and external rotation to 30 degrees is painless. Negative FADIR. Left knee was examined today. The left knee is in reasonable alignment. Range of motion from 0-120 degrees. Knee is stable to varus and valgus as well as AP translation with <5mm. Patient has a negative McMurrays. There is no pain with patellofemoral compression and no crepitus noted. The knee is nontender to palpation. Right knee incisions clean dry intact. Range of motion is 5 to 100 degrees Assessment and Plan Problem List (1) Arthritis of knee, right: Status: Acute Plan: Patient is doing well status post total knee replacement. She is doing well and would like to go back to full duty. She does not have her last 5 degrees of terminal extension yet Office Procedures GNS Level of Care Nursing/Assessment Patient Status: Established Patient Nursing Assessment/Reassesment: Medication Reconciliation, Update PMH in EMR and Vital Signs Coordination of Care: Complex Care and Chronic Disease 1-5, Education Complex Pt/Fam, Consent,records obtained, informed consent, Results/Orders obtained and Staff clarify orders Established Patient Charge Established Patient Point Assignment: 95 Established Patient Point Charge: EP Level 3 (80-115) MA Intake Visit Data Collection New Patient or Established: Established Patient (seen at [facility] within 3 years) Reason for Visit:: 3 MTH TKA F/U Seen by Clinical Staff ONLY (RN/MA): No PCP or OBGYN visit in last 3 months: Yes Hx Now: No Do You Feel Safe at Home: Yes Authorities Contacted: N/A Questionairres Past Medical History Past Medical History Have you ever been diagnosed with any of the following: Neurological Problems Seizures: No Cardiology Problems Hypercholesterolemia: Yes Congestive Heart Failure: No Hypertension: Yes Varicose Veins: Yes Respiratory Problems Chronic Obstructive Pulmonary Disease (COPD): No Sleep Apnea: Yes Smoking: No Smoking Exposure: No Stomache/Intestinal Problems Obesity: Yes Genital/Urinary Problems Renal Disease: No Reproductive Problems Previous Pregnancies: Yes (3) Musculoskeletal Problems Arthritis: Yes Degenerative Disk Disease: Yes Endocrine Problems Diabetes Mellitus Type 1: Yes Diabetes Mellitus Type 2: Yes Hyperthyroidism: Yes Other Problems Hospitalization: No Shingles: No Blood Transfusions: No Blood Transfusion Reaction: No Anesthesia Reactions: No Radiation Therapy: Yes Chicken Pox: Yes Cancer: Yes (Thyroid) Subjective Visit Visit for: follow up visit and knee Immunization / Flu Flu Vaccine in the Last 12 Months: No Flu Vaccine Exclusion Criteria: No Exclusion Criteria History of Present Illness Chief complaint: RIGHT KNEE FOLLOW UP Patient is 4 months status post total knee replacement. She is doing well She reports the pain is better than before surgery Personal History Occupation: DISABLED Red flag PMH: BMI BMI Counceling provided: Yes Pain Pain level (0-10): 5 Pain duration: ON AND OFF Pain location: anterior Pain quality: aching Pain timing: increases with activity Associated signs & symptoms: none Ambulatory data Ambulatory device: cane Treatments Improvement with previous injections: No Improvement with PT: Yes Improvement with NSAIDS: no Review of Systems Review of Systems: All systems negative unless otherwise noted in HPI.
== END 2025-04-24 10:25 | disposition home or self-care (01) ==
LOC: HODSRG 09:54
PROVIDERS: Supervising Provider Orthopaedic Surgery Adult Reconstructive Orthopaedic Surgery; Visit Provider Orthopaedic Surgery Adult Reconstructive Orthopaedic Surgery
DX: M17.11 Unilateral primary osteoarthritis, right knee (principal); Z96.651 Presence of right artificial knee joint; I10 Essential (primary) hypertension; E78.00 Pure hypercholesterolemia, unspecified; G47.30 Sleep apnea, unspecified; E11.9 Type 2 diabetes mellitus without complications; E66.9 Obesity, unspecified; Z71.3 Dietary counseling and surveillance; Z68.38 Body mass index [BMI] 38.0-38.9, adult
CPT/HCPCS: 99213; G0463